=== PATIENT | female | born 1955 | race Two or more races ===

== ENCOUNTER 2017-11-22 16:26 | Emergency (ER) | payer OTHER ==
[~2017-11-22] VITALS: Ht 165.1 cm; Wt 70.0 kg
[2017-11-22] MEDS ORDERED: PROPARACAINE HCL 0.5% 15 ML OPHTHALMIC SOLUTION OS ONE (18:00)
[2017-11-22] MEDS: BETAXOLOL HCL 0.5% OS ONE ×2 (18:27→18:29)
[2017-11-22] MEDS ORDERED: PILOCARPINE HCL 2% 15 ML OPHTHALMIC SOLUTION OS ONE (18:30)
[2017-11-22 19:22] LABS: BASOPHILS % (AUTO) 0.9 % (0.0-2.0); EOSINOPHILS % (AUTO) 1.8 % (1.0-6.0); HEMATOCRIT 41.7 % (36-46); HEMOGLOBIN 14.8 g/dL (12.0-16.0); LYMPHOCYTES # (AUTO) 2.2 K/uL (1.0-4.8); LYMPHOCYTES % (AUTO) 22.8 % (22.0-44.0); MEAN CORPUSCULAR HGB CONC 35.5 G/dL (31.0-37.0); MEAN CORPUSCULAR VOLUME 85 fL (80-100); MONOCYTES # (AUTO) 0.8 K/uL (0.1-1.0); NEUTROPHILS # (AUTO) 6.5 K/uL (1.8-7.7); NEUTROPHILS % (AUTO) 66.5 % (40.0-70.0); PLATELET COUNT (AUTO) 305 K/uL (150-450); RED BLOOD CELL COUNT(AUTO) 4.92 MIL/uL (4.00-5.20); RED CELL DISTRIBUTION WIDTH 12.8 % (11.5-14.5)
[2017-11-22] MEDS ORDERED: LATANOPROST 0.005% 2.5 ML OPHTHALMIC SOLUTION OS ONE (19:30)
[2017-11-22] MEDS ORDERED: BRIMONIDINE TARTRATE 0.2% 5 ML OPHTHALMIC SOLUTION OS ONE (19:30)
[2017-11-22] MEDS ORDERED: DORZOLAMIDE/TIMOLOL 2-0.5% [22.3-6.8MG/ML] 10 ML OPHTHALMIC SOLUTION OS ONE (19:30)
[2017-11-22 19:33] LABS: CALCIUM, TOTAL 8.4 mg/dL (8.8-10.5); CREATININE 1.15 mg/dL (0.60-1.30); POTASSIUM 4.1 mmol/L (3.5-5.1)
[2017-11-22 19:38] LABS: ALBUMIN 3.7 g/dL (3.4-5.0); BILIRUBIN,TOTAL 0.7 mg/dL (0.1-1.0)
[2017-11-22] MEDS ORDERED: AcetaZOLAMIDE SODIUM 500 MG VIAL IVP ONE (20:15)
[2017-11-22 21:45] VITALS: BP 120/89
== END 2017-11-22 21:47 | disposition home or self-care (01) ==
LOC: EMS 16:28
DX: H40.212 Acute angle-closure glaucoma, left eye (principal); Z90.49 Acquired absence of other specified parts of digestive tract
CPT/HCPCS: 36415; 80053; 85025; 96374; 99284; J1120; Z7610

== ENCOUNTER 2017-12-20 15:07 | Emergency (ER) | payer OTHER ==
[~2017-12-20] VITALS: Ht 162.6 cm; Wt 79.5 kg
[2017-12-20 15:23] LABS: GLUCOSE,POINT OF CARE 117 MG/DL (70-110)
[2017-12-20] MEDS ORDERED: IBUPROFEN 800 MG TABLET PO ONE (16:30)
[2017-12-20 17:58] VITALS: BP 128/84
== END 2017-12-20 17:59 | disposition home or self-care (01) ==
LOC: EMS 15:08
DX: S93.402A Sprain of unspecified ligament of left ankle, initial encounter (principal); S80.02XA Contusion of left knee, initial encounter; E11.9 Type 2 diabetes mellitus without complications; Z88.8 Allergy status to other drugs, medicaments and biological substances; X50.0XXA Overexertion from strenuous movement or load, initial encounter; Y93.89 Activity, other specified; Y92.89 Other specified places as the place of occurrence of the external cause; Y99.8 Other external cause status
CPT/HCPCS: 99284

== ENCOUNTER 2019-02-10 15:59 | Emergency (ER) | payer OTHER ==
[~2019-02-10] VITALS: Ht 162.6 cm; Wt 82.0 kg
[2019-02-10] MEDS ORDERED: TETR15DR24 OP (16:04)
[2019-02-10] MEDS ORDERED: HYDROCODONE/ACETAMINOPHEN 5-325 MG TABLET PO ONE (17:15)
[2019-02-10 19:10] VITALS: BP 136/92
== END 2019-02-10 19:15 | disposition home or self-care (01) ==
LOC: EMS 15:59
DX: S00.93XA Contusion of unspecified part of head, initial encounter (principal); M54.2 Cervicalgia; R07.89 Other chest pain; E11.9 Type 2 diabetes mellitus without complications; Z79.899 Other long term (current) drug therapy; Z90.49 Acquired absence of other specified parts of digestive tract; V49.9XXA Car occupant (driver) (passenger) injured in unspecified traffic accident, initial encounter; Y93.89 Activity, other specified; Y92.89 Other specified places as the place of occurrence of the external cause; Y99.8 Other external cause status
CPT/HCPCS: 70450; 72125; 93005